=== PATIENT | female | born 1970 | race Caucasian/White ===

== ENCOUNTER 2017-10-21 01:14 | Emergency (ER) | payer SELFPAY ==
--- NOTE | 2017-10-21 02:06 | EDM.PDOC ---
ED HPI GENERAL MEDICAL PROBLEM - General Chief Complaint: Back Pain or Injury Stated Complaint: LOWER BACK PAIN Time Seen by Provider: 10/21/17 01:21 Source of Information: Reports: Patient, Family History Limitations: Reports: No Limitations - History of Present Illness INITIAL COMMENTS - FREE TEXT/NARRATIVE: The patient states that she slipped and fell onto her left side Saturday night, 10/19/2017. She states that she did not have any pain at the time, but then developed lower left back pain mid-Saturday, 10/20/2017. She states that it hurts to walk. She has not tried any home remedies, as she is currently . No prior back injury. She states that she was seen by Dr. Valladares in OB earlier tonight, and had the fetus checked out. No problems were found, but the patient was then sent to the ED for evaluation of her back pain. The patient is Ab1. LMP 04/26/2017 (25 weeks, 5 days, by dates). Her ALKA is 01/29/2018. 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 ED EXAM,LOWER BACK PAIN/INJURY - Physical Exam Exam: See Below Exam Limited By: No Limitations General Appearance: Alert, WD/WN, Mild Distress (Appears uncomfortable) Eye Exam: Bilateral Eye: Normal Inspection Ears: Normal External Exam, Hearing Grossly Normal Nose: Normal Inspection, No Blood Throat/Mouth: Normal Inspection, Normal Lips, Normal Voice, No Airway Compromise Head: Atraumatic, Normocephalic Neck: Normal Inspection, Full Range of Motion Respiratory/Chest: No Respiratory Distress, Lungs Clear, Normal Breath Sounds, No Accessory Muscle Use Cardiovascular: Normal Peripheral Pulses, Regular Rate, Rhythm, No Gallop, No JVD, No Murmur, No Rub GI/Abdominal: Normal Bowel Sounds, Soft, Non-Tender, No Organomegaly, No Distention, No Abnormal Bruit, Other (Gravid uterus, consistent with dates) (Female) Exam: Deferred Rectal (Female) Exam: Deferred Back Exam: Other (No visible abnormality to the patient's lower back, such as swelling, erythema, ecchymosis, or abrasion. There is mild tenderness to palpation over the left SI joint area.) Extremities: Normal Inspection, Normal Range of Motion, Non-Tender, Normal Capillary Refill Neurological: Alert, No Motor/Sensory Deficits, Oriented x 3 Psychiatric: Normal Affect Skin Exam: Warm, Dry, Intact, Normal Color, No Rash Course - Vital Signs Last Recorded V/S: Last Vital Signs Temp 36.4 C 10/21/17 01:19 Pulse 81 10/21/17 01:19 Resp 18 10/21/17 01:19 BP 109/71 10/21/17 01:19 Pulse Ox 100 10/21/17 01:19 - Re-Assessments/Exams Free Text/Narrative Re-Assessment/Exam: 10/21/17 02:01 The patient states that she slipped and fell onto her left side Saturday night, 10/19/2017, but did not develop pain until the middle of yesterday, 10/20/2017. This strongly suggests that there is no bony injury, and removes the need for an x-ray, which is good, because the patient is 25+ weeks . There is no visible injury on examination, and minimal tenderness. Patient's pain is most likely musculoskeletal strain. I would ordinarily prescribe a muscle relaxant, however, these are category C or D. In this case, the only medicinal treatment available is Tylenol. I am, however, recommending that the patient stretch and stay active. Departure - Departure Time of Disposition: 02:03 Disposition: Home, Self-Care 01 Condition: Good Clinical Impression: Low back strain, - Discharge Information Instructions: Low Back Sprain With Rehab-SportsMed Referrals: PCP,None [Primary Care Provider] - Abe Valladares MD [Physician] - Forms: ED Department Discharge Additional Instructions: You were seen in the emergency room after developing low back pain on Saturday, after slipping and falling Saturday night. Because your pain did not develop for about half a day, broken bones are highly unlikely, and x-rays were not ordered. Your low back pain is MOST LIKELY due to a muscle strain or spasm. Because you are , the only medicine treatment available is over-the- counter Tylenol. We recommend that you stretch and stay active. Swimming is best, but walking is good, as well. Follow-up with Dr. Valladares as needed. If any other problems, please do not hesitate to return to the ER.
== END 2017-10-21 02:12 | disposition home or self-care (01) ==
LOC: JD.ED 01:14
DX: O09.512 Supervision of elderly primigravida, second trimester (principal); O9A.212 Injury, poisoning and certain other consequences of external causes complicating pregnancy, second trimester; S39.012A Strain of muscle, fascia and tendon of lower back, initial encounter; Z88.5 Allergy status to narcotic agent; Z3A.25 25 weeks gestation of pregnancy; W01.0XXA Fall on same level from slipping, tripping and stumbling without subsequent striking against object, initial encounter
CPT/HCPCS: 99282; 99283